=== PATIENT | male | born 1995 | race African-American/Black ===

== ENCOUNTER 2018-04-23 23:12 | Emergency (ER) | payer OTHER ==
[~2018-04-23] VITALS: Ht 167.6 cm; Wt 100.5 kg
[2018-04-23] MEDS ORDERED: NAPROSYN500 MG PO (23:36)
[2018-04-24 00:12] VITALS: BP 132/79
== END 2018-04-24 00:12 | disposition home or self-care (01) ==
LOC: EME 23:12
DX: M77.51 Other enthesopathy of right foot and ankle (principal); J45.909 Unspecified asthma, uncomplicated; F17.200 Nicotine dependence, unspecified, uncomplicated; Z91.010 Allergy to peanuts
CPT/HCPCS: 99281; 99283